=== PATIENT | female | born 1980 | race Hispanic/Latino ===

== ENCOUNTER 2019-11-21 15:07 | Observation (INO) | payer MEDICAID ==
[2019-11-21] MEDS ORDERED: NITROGLYCERIN 2% OINT 1 GM TP ONE (16:08)
--- NOTE | 2019-11-21 16:08 | Emergency Department Report ---
HPI - General Chief Complaint: Chest Pain Time Seen by Provider: 11/21/19 15:46 - HPI HPI: Room 19 The patient is a 39-year-old female present with a chief complaint of chest pain and palpitations. The patient states she is felt weak for the past 4 days. The patient states for the past 3 days she has had intermittent palpitations whenever she exerts herself. Patient states this morning she developed substernal chest pain described as a heaviness/aching associated with shortness of breath, diaphoresis and nausea without vomiting. Patient denies pleurisy, cough or fever. Patient denies any recent flights or long car trips. Patient states her last stress test occurred 3 years ago but she is never had a cardiac catheterization ED Past Medical Hx - Past Medical History Previous Medical History?: Yes Hx Hypertension: Yes Hx CVA: Yes (TIA 2011) Hx Diabetes: Yes Hx Asthma: Yes (childhood) Additional medical history: Degenertive Hip problem, Contrast Extravasation 11/09/2019, Osterarthritis - Surgical History Past Surgical History?: Yes Hx Cholecystectomy: Yes (2004) Additional Surgical History: hysterectomy 2016, 2013 - Family History Family history: no significant - Social History Smoking Status: Former Smoker (None x20 years) Substance Use Type: Marijuana - Medications Home Medications: Home Medications Medication Instructions Recorded Confirmed Last Taken Type Empagliflozin [Jardiance] 25 mg PO QDAY 11/21/19 11/21/19 11/21/19 18:43 History Ergocalciferol (Vitamin D2) 50,000 unit PO 1XW 11/21/19 11/21/19 11/15/19 History [Vitamin D2] Etodolac 500 mg PO BID 11/21/19 11/21/19 11/21/19 History Gabapentin 300 mg PO TID 11/21/19 11/21/19 11/18/19 History Sitagliptin Phos/Metformin HCl 50 - 1,000 mg PO HS 11/21/19 11/21/19 11/20/19 18:00 History [Janumet XR 50-1,000 mg] lisinopriL [Zestril TAB] 10 mg PO 11/21/19 11/21/19 08:00 History sulfaSALAzine [Azulfidine] 500 mg PO BID 11/21/19 11/21/19 11/20/19 History ED Review of Systems ROS: Stated complaint: CHEST PAIN Other details as noted in HPI Constitutional: diaphoresis Eyes: denies: eye pain ENT: denies: throat pain Respiratory: shortness of breath, SOB with exertion Cardiovascular: chest pain, palpitations Endocrine: no symptoms reported Gastrointestinal: nausea. denies: vomiting Genitourinary: denies: dysuria Musculoskeletal: back pain Neurological: denies: headache Physical Exam - Physical Exam Vital Signs: Vital Signs 11/21/19 15:30 Temperature 99.3 F Pulse Rate 112 H Respiratory 22 Rate Blood Pressure 192/116 O2 Sat by Pulse 96 Oximetry Physical Exam: GENERAL: The patient is well-developed well-nourished female lying on stretcher not appearing to be in acute distress. [] HEENT: Normocephalic. Atraumatic. Extraocular motions are intact. Patient has moist mucous membranes. NECK: Supple. Trachea midline CHEST/LUNGS: Clear to auscultation. There is no respiratory distress noted. HEART/CARDIOVASCULAR: Regular. There is no tachycardia. There is no gallop rub or murmur. ABDOMEN: Abdomen is soft, nontender. Patient has normal bowel sounds. There is no abdominal distention. SKIN: There is no rash. There is no edema. There is no diaphoresis. NEURO: The patient is awake, alert, and oriented. The patient is cooperative. The patient has normal speech MUSCULOSKELETAL: There is no evidence of acute injury. ED Course Vital Signs 11/21/19 15:30 Temperature 99.3 F Pulse Rate 112 H Respiratory 22 Rate Blood Pressure 192/116 O2 Sat by Pulse 96 Oximetry ED Medical Decision Making - Lab Data Result diagrams: 11/21/19 16:11 11/21/19 16:11 - EKG Data -: EKG Interpreted by Ak EKG shows normal: sinus rhythm Rate: normal - EKG Data When compared to previous EKG there are: previous EKG unavailable Interpretation: nonspecific ST-T wave viviane (T wave inversion in lead III, V2 and V3) - Radiology Data Radiology results: report reviewed (CT chest), image reviewed (CT chest) [facility] [address] [place] [address] Cat Scan Report Signed Patient: JUNITO DUNN MR#: [id number] : 1980 Acct:[id number] Age/Sex: 39 / F ADM Date: 11/21/19 Loc: ED Attending Dr: Ordering Physician: CANDIE CEJA MD Date of Service: 11/21/19 Procedure(s): CT angio chest Accession Number(s): [id number] cc: CANDIE CEJA MD CT angio chest INDICATION / CLINICAL INFORMATION: Chest pain. TECHNIQUE: Axial CT images were obtained after injection of Omnipaque 350, 100 cc IV contrast using CTA pro tocol. 3 plane MIP / 3D reconstructions were produced. All CT scans at this location are performed using CT dose reduction for ALARA by means of automated exposure control. COMPARISON: None available. FINDINGS: The lungs contain no mass, infiltrate or pleural fluid. Negative for mediastinal mass or adenopathy. No aneurysm, dissection or pulmonary embolus. Imaging of the upper abdomen is unremarkable. IMPRESSION: Negative for pulmonary embolus or pneumonia. Signer Name: Virgilio Parker MD Signed: 11/21/2019 7:47 PM Workstation Name: [id number] Transcribed By: ES Dictated By: Virgilio Parker MD Electronically Authenticated By: Virgilio Parker MD Signed Date/Time: 11/21/191946 DD/ 41 TD/TT: - Differential Diagnosis ACS, pericarditis, GERD, PE Critical care attestation.: If time is entered above; I have spent that time in minutes in the direct care of this critically ill patient, excluding procedure time. ED Disposition Clinical Impression: Chest pain Disposition: DC-09 OP ADMIT IP TO THIS HOSP Is pt being admited?: Yes Does the pt Need Aspirin: Yes Condition: Fair Instructions: Chest Pain (ED) Time of Disposition: 20:23 (Hospitalist paged (Dr Jarrett))
[2019-11-21 16:38] LABS: Basophils % (Auto) 0.4 % (0.0-1.8); Eosinophils # (Auto) 0.2 K/mm3 (0.0-0.4); Eosinophils % (Auto) 1.5 % (0.0-4.3); Hematocrit 49.1 % (30.3-42.9); Hemoglobin 16.6 gm/dl (10.1-14.3); Lymphocytes # (Auto) 2.5 K/mm3 (1.2-5.4); Lymphocytes % (Auto) 24.1 % (13.4-35.0); Mean Corpuscular HGB Conc 34 % (30-34); Mean Corpuscular Volume 92 fl (79-97); Monocytes # (Auto) 0.7 K/mm3 (0.0-0.8); Monocytes % (Auto) 7.2 % (0.0-7.3); Platelet Count 243 K/mm3 (140-440); Red Blood Count 5.35 M/mm3 (3.65-5.03)
[2019-11-21 17:01] LABS: BUN/Creatinine Ratio 26; Blood Urea Nitrogen 18 mg/dL (7-17); Calcium 9.1 mg/dL (8.4-10.2); Hemolysis Index 17
[2019-11-21 17:03] LABS: Creatine Kinase MB 1.2 ng/mL (0.0-4.0)
--- NOTE | 2019-11-21 19:51 | Cat Scan Report ---
CT angio chest INDICATION / CLINICAL INFORMATION: Chest pain. TECHNIQUE: Axial CT images were obtained after injection of Omnipaque 350, 100 cc IV contrast using CTA protocol . 3 plane MIP / 3D reconstructions were produced. All CT scans at this location are performed using C T dose reduction for ALARA by means of automated exposure control. COMPARISON: None available. FINDINGS: The lungs contain no mass, infiltrate or pleural fluid. Negative for mediastinal mass or adenopathy. No aneurysm, dissection or pulmonary embolus. Imaging of the upper abdomen is unremarkable. IMPRESSION: Negative for pulmonary embolus or pneumonia. Signer Name: Virgilio Parker MD Signed: 11/21/2019 7:47 PM Workstation Name: [id number]
[2019-11-21] MEDS ORDERED: ASPIRIN 325 MG TAB PO ONE (20:24)
[2019-11-21] MEDS ORDERED: ONDANSETRON 4 MG/2 ML INJ IV ONE (20:27)
[2019-11-21] MEDS ORDERED: fentaNYL 100 MCG/2 ML INJ IV ONE (20:27)
--- NOTE | 2019-11-21 23:05 | History and Physical Report ---
History of Present Illness History of present illness: 39-year-old woman with a history of hypertension, diabetes, asthma, CVA, psoriasis arthritis, osteoarthritis comes emergency room with complaint of chest pain that started on Sunday. Pain is in the epigastric area, bilateral shoulder which he describes as a dull pain, intermittent every 20 to 30 minutes, intensity 6/10, better with pain medication. Admits to shortness of breath, nausea, no diaphoresis or palpitation. Patient will be admitted for chest pain evaluation, SHASHANK score of 2 Review Of Systems: Constitutional: no weight loss, fever, chills Ears, eyes, nose, mouth and throat: no nasal congestion, no nasal discharge, no sinus pressure, blurry vision, diplopia Neck: No neck pain or rigidity. Cardiovascular: No palpitations, chest pain Respiratory: No shortness of breath, cough Gastrointestinal: No hematochezia Genitourinary : no dysuria, frequency Musculoskeletal: no muscle ache , joint pain Integumentary: no rash, no pruritis Neurological: no parathesias, focal weakness Endocrine: no cold or heat intolerance, no polyuria or polydipsia Hematologic/Lymphatic: no easy bruising, no easy bleeding, no gland swelling Allergic/Immunologic: no urticaria, no angioedema. PAST MEDICAL HISTORY: hypertension, diabetes, asthma, CVA, psoriasis arthritis, osteoarthritis PAST SURGICAL HISTORY: Hysterectomy, , cholecystectomy SOCIAL HISTORY: Denies alcohol, tobacco, drugs FAMILY HISTORY: Hypertension Medications and Allergies Allergies Allergy/AdvReac Type Severity Reaction Status Date / Time latex AdvReac Hives Verified 11/21/19 16:41 Home Medications Medication Instructions Recorded Confirmed Last Taken Type Empagliflozin [Jardiance] 25 mg PO QDAY 11/21/19 11/21/19 11/21/19 18:43 History Ergocalciferol (Vitamin D2) 50,000 unit PO 1XW 11/21/19 11/21/19 11/15/19 H istory [Vitamin D2] Etodolac 500 mg PO BID 11/21/19 11/21/19 11/21/19 History Gabapentin 300 mg PO TID 11/21/19 11/21/19 11/18/19 History Sitagliptin Phos/Metformin HCl 50 - 1,000 mg PO HS 11/21/19 11/21/19 11/20/19 18:00 History [Janumet XR 50-1,000 mg] lisinopriL [Zestril TAB] 10 mg PO DAILY 11/21/19 11/22/19 11/21/19 08:00 History sulfaSALAzine [Azulfidine] 500 mg PO BID 11/21/19 11/21/19 11/20/19 History Exam - Physical Exam Narrative exam: Gen. appearance: Patient lying in bed, no apparent distress HEENT: Normocephalic, atraumatic, pupils equally round and reactive to light, extraocular movement intact, and no sclericterus,. No JVD or thyromegaly or nodule,neck supple, no carotid bruit ,mucous membranes moist, no exudate or erythema Heart: S1, S2, regular rate and rhythm Lungs: Clear bilaterally, breathing comfortable Abdomen: Positive bowel sounds, nontender, nondistended, no organomegaly Extremity: no edema, cyanosis, clubbing Skin: No rash, nodules, warm, dry Neuro: Cranial nerves II to XII intact, speech is fluent, moves extremities, sensory intact - Constitutional Vitals: Temp Pulse Resp BP Pulse Ox 99.3 F 105 H 18 129/65 98 11/21/19 15:30 11/21/19 22:55 11/21/19 22:55 11/21/19 22:55 11/21/19 22:55 Results - Labs CBC & Chem 7: 11/21/19 16:11 11/21/19 16:11 Labs: Abnormal lab results 11/21/19 11/21/19 11/21/19 Range/Units 16:11 16:11 16:11 RBC 5.35 H (3.65-5.03) M/mm3 Hgb 16.6 H (10.1-14.3) gm/dl Hct 49.1 H (30.3-42.9) % RDW 13.0 L (13.2-15.2) % D-Dimer 438.38 H (0-234) ng/mlDDU Sodium 131 L (137-145) mmol/L Carbon Dioxide 11 L (22-30) mmol/L BUN 18 H (7-17) mg/dL Glucose 136 H (65-100) mg/dL - Imaging and Cardiology EKG: image reviewed Chest x-ray: report reviewed CT scan - chest: report reviewed Assessment and Plan Assessment Chest pain, Check cardiac enzymes, stress test Start aspirin, morphine Hypertension Continue outpatient medications Diabetes Check fingersticks, start insulin sliding scale Asthma, stable DVT prophylaxis
[2019-11-21] MEDS ORDERED: ACETAMINOPHEN 325 MG TAB PO PRN (23:42)
[2019-11-21] MEDS ORDERED: ONDANSETRON 4 MG/2 ML INJ IV PRN (23:42)
[2019-11-22] MEDS: MORPHINE 2 MG/1 ML INJ IV PRN ×3 (01:00→12:10)
[2019-11-22] MEDS ORDERED: SODIUM CHLORIDE 0.9% 1000 ML 1,000 ML IV ONE (01:41)
[2019-11-22] MEDS ORDERED: SODIUM CHLORIDE 0.9% 1000 ML 1,000 ML IV SCH (01:45)
[2019-11-22] MEDS ORDERED: DEXTROSE 50% IN WATER (25GM) 50 ML SYRINGE IV PRN (05:26)
[2019-11-22 06:30] LABS: Basophils % (Auto) 0.3 % (0.0-1.8); Eosinophils # (Auto) 0.1 K/mm3 (0.0-0.4); Eosinophils % (Auto) 1.2 % (0.0-4.3); Hematocrit 45.6 % (30.3-42.9); Hemoglobin 15.5 gm/dl (10.1-14.3); Lymphocytes # (Auto) 2.6 K/mm3 (1.2-5.4); Lymphocytes % (Auto) 27.9 % (13.4-35.0); Mean Corpuscular HGB Conc 34 % (30-34); Mean Corpuscular Volume 92 fl (79-97); Monocytes # (Auto) 0.8 K/mm3 (0.0-0.8); Monocytes % (Auto) 8.7 % (0.0-7.3); Platelet Count 222 K/mm3 (140-440); Red Blood Count 4.96 M/mm3 (3.65-5.03); Red Cell Distribution Width 13.3 % (13.2-15.2)
[2019-11-22] MEDS: INSULIN LISPRO 100 UNIT/ML SUB-Q SCH ×2 (06:33→12:21)
[2019-11-22 06:47] LABS: BUN/Creatinine Ratio 19; Blood Urea Nitrogen 13 mg/dL (7-17); Calcium 8.3 mg/dL (8.4-10.2); Hemolysis Index 2
[2019-11-22] MEDS ORDERED: REGADENOSON 0.4 MG/5 ML INJ IV ONE ×2 (07:58→08:19)
[2019-11-22] MEDS: GABAPENTIN 300 MG CAP PO SCH ×3 (08:36→14:00)
[2019-11-22] MEDS ORDERED: ERGOCALCIFEROL (VIT D2) 50,000 UNIT CAP PO SCH (10:00)
[2019-11-22] MEDS ORDERED: sulfaSALAzine 500 MG TAB PO SCH (10:00)
[2019-11-22] MEDS ORDERED: LISINOPRIL 10 MG TAB PO SCH (10:00)
[2019-11-22] MEDS ORDERED: ENOXAPARIN 30 MG/0.3 ML INJ SUB-Q SCH (10:00)
[2019-11-22] MEDS ORDERED: ASPIRIN 81 MG TAB CHEW PO SCH (10:00)
[2019-11-22] MEDS ORDERED: ENOXAPARIN 40 MG/0.4 ML INJ SUB-Q SCH (10:00)
[2019-11-22 12:05] VITALS: BP 144/88
--- NOTE | 2019-11-22 15:41 | Discharge Summary ---
Providers - Providers Date of Admission: 11/21/19 23:04 Date of discharge: 11/22/19 Attending physician: DANIEL GRANADO [facility] MD Hospitalization Condition: Fair Disposition: DC-01 TO HOME OR SELFCARE Core Measure Documentation - Palliative Care Palliative Care/ Comfort Measures: Not Applicable - Core Measures Any of the following diagnoses?: none Exam - Constitutional Vitals: Temp Pulse Resp BP Pulse Ox 98.1 F 92 H 18 144/88 96 11/22/19 11:48 11/22/19 12:15 11/22/19 11:48 11/22/19 12:11 11/22/19 10:00 Plan Activity: no restrictions Diet: low fat, low cholesterol, low salt, diabetic Plan of Treatment: 1.Follow up with PCP in 1 week Follow up with: SHELBY CARRILLO MD [Primary Care Provider] - 3-5 Days
--- NOTE | 2019-11-23 04:22 | Treadmill Report ---
THALLIUM STRESS TEST REPORT LEFT VENTRICLE: Left ventricular chamber size is within normal spread. Perfusion study demonstrates mild breast attenuation artifact, otherwise homogeneous uptake of the tracer in all segments with no defects identified. Gated analysis demonstrates normal left ventricular systolic function, ejection fraction 77%. CONCLUSION: Normal myocardial perfusion study. JOB# [id number] CA/NTS
== END 2019-11-22 17:25 | disposition home or self-care (01) ==
LOC: ED 15:07 → 4A 23:04
PROVIDERS: ADMIT Internal Medicine; ATTEND Internal Medicine
DX: R07.89 Other chest pain (principal); I10 Essential (primary) hypertension; E11.9 Type 2 diabetes mellitus without complications; J45.909 Unspecified asthma, uncomplicated; L40.50 Arthropathic psoriasis, unspecified; M19.90 Unspecified osteoarthritis, unspecified site; Z86.73 Personal history of transient ischemic attack (TIA), and cerebral infarction without residual deficits; Z90.710 Acquired absence of both cervix and uterus; Z98.891 History of uterine scar from previous surgery; Z90.49 Acquired absence of other specified parts of digestive tract; Z87.891 Personal history of nicotine dependence
CPT/HCPCS: 36415; 71275; 78452; 80048; 82550; 82553; 82962; 83690; 83880; 84484; 85025; 85379; 93005; 93010; 93017; 94760; 96372; 96374; 96375; 96376; 99285; A9502; G0378; J1650; J2270; J2405; J2785; J3010; J7030; Q9967